=== PATIENT | female | born 1955 | race Caucasian/White ===

== ENCOUNTER → 2017-01-02 | Outpatient (CLI) | payer OTHER | LOC: FIMAGING 13:52 | PROVIDERS: ATTEND Family Medicine | DX: Z13.820 Encounter for screening for osteoporosis (principal); M81.0 Age-related osteoporosis without current pathological fracture; Z78.0 Asymptomatic menopausal state; Z79.899 Other long term (current) drug therapy ==

== ENCOUNTER → 2017-05-10 | Outpatient (CLI) | payer OTHER | LOC: FIMAGING 13:13 | PROVIDERS: ATTEND Family Medicine | DX: Z12.39 Encounter for other screening for malignant neoplasm of breast (principal) | CPT/HCPCS: G0202 ==

== ENCOUNTER → 2018-12-02 | Outpatient (CLI) | payer OTHER | LOC: FIMAGING 08:23 | PROVIDERS: ATTEND Family Medicine | DX: N83.9 Noninflammatory disorder of ovary, fallopian tube and broad ligament, unspecified (principal) ==

== ENCOUNTER → 2018-12-03 | Outpatient (CLI) | payer OTHER ==
[~2018-12-03] MED LIST: IOPAMIDOL (ISOVUE-300) 100 ML BTL ONE
== END ==
LOC: CIMAGING 09:14
PROVIDERS: ATTEND Family Medicine
DX: N83.8 Other noninflammatory disorders of ovary, fallopian tube and broad ligament (principal); K82.9 Disease of gallbladder, unspecified; Z90.89 Acquired absence of other organs; N28.9 Disorder of kidney and ureter, unspecified
CPT/HCPCS: 74177-PO; Q9967

== ENCOUNTER 2018-12-28 09:28 | Emergency (ER) | payer OTHER ==
[2018-12-28 09:34] VITALS: BP 142/82
--- NOTE | 2018-12-28 09:37 | EDPHY ---
H & P Stated Complaint: Rectal bleeding - small amount of blood noticing when wiping. Time Seen by Provider: 12/28/18 09:31 HPI/ROS: CHIEF COMPLAINT: Scant hematochezia HISTORY OF PRESENT ILLNESS: The patient presents to the ED for evaluation of 1 day of very mild scant hematochezia. The patient did noticed a small amount of blood while wiping. The patient denies any abdominal pain. She denies melena. She denies any hematemesis. The patient is scheduled to see Dr. Carmen mckinney with Gastroenterology for a follow-up appointment the 1st week in January. She is not anticoagulated. The patient does report that she has had some constipation this week. She denies additional acute complaints. REVIEW OF SYSTEMS: A comprehensive 10 point review of systems is otherwise negative aside from elements mentioned in the history of present illness. Source: Patient Exam Limitations: No limitations - Personal History Current Tetanus Diphtheria and Acellular Pertussis (TDAP): Unsure - Medical/Surgical History Hx Asthma: No Hx Chronic Respiratory Disease: No Hx Diabetes: No Hx Cardiac Disease: No Hx Renal Disease: No Hx Cirrhosis: No Hx Alcoholism: No Hx HIV/AIDS: No Hx Splenectomy or Spleen Trauma: No Other PMH: Appy Oct 2018. - Social History Smoking Status: Never smoked - Physical Exam Exam: General Appearance: Alert, no distress Eyes: Pupils equal and round no pallor or injection ENT, Mouth: Mucous membranes moist Respiratory: There are no retractions, lungs are clear to auscultation Cardiovascular: Regular rate and rhythm Gastrointestinal: Abdomen is soft and nontender, no masses, bowel sounds normal Rectal: No external hemorrhoids noted, no gross blood noted on digital rectal exam Constitutional: Initial Vital Signs Temperature (C) 36.8 C 12/28/18 09:30 Heart Rate 84 12/28/18 09:30 Respiratory Rate 16 12/28/18 09:30 Blood Pressure 142/82 H 12/28/18 09:30 O2 Sat (%) 96 12/28/18 09:30 O2 Delivery Mode Room Air Allergies/Adverse Reactions: No Known Allergies Allergy (Verified 11/18/12 09:57) Home Medications: Medication Instructions Recorded Miscellaneous Medical Supply [NO 1 ea MISC AD 11/18/12 HOME MEDS] Medical Decision Making ED Course/Re-evaluation: Patient presents the ED with scant rectal hematochezia. She is hemodynamically stable. She gives no history of significant blood loss. She has had some constipation and may have small anal fissure versus internal hemorrhoid. The patient is scheduled to see Gastroenterology next week. At this point time I feel she takes stool softeners. She has been advised to return to the ED for severe pain, heavy bleeding or other concerns. Departure - Departure Disposition: Home, Routine, Self-Care Clinical Impression: Hematochezia Condition: Good Instructions: Rectal Bleeding (ED) Additional Instructions: 1. Return to the ED for any pain, heavy bleeding or other concerns. 2. I do recommend taking a stool softener like Colace each day. 3. Follow up with Gastroenterology as scheduled in January. 4. I do believe this or severe bleeding is a small internal hemorrhoid verses a minor rectal tear from constipation. Referrals: Monica Pedroza MD [Medical Doctor] - As per Instructions
== END 2018-12-28 09:58 | disposition home or self-care (01) ==
DX: K62.5 Hemorrhage of anus and rectum (principal)

== ENCOUNTER → 2019-01-09 | Outpatient (CLI) | payer OTHER | LOC: FIMAGING 09:16 | PROVIDERS: ATTEND Internal Medicine Gastroenterology | DX: D18.03 Hemangioma of intra-abdominal structures (principal); N28.9 Disorder of kidney and ureter, unspecified; K82.4 Cholesterolosis of gallbladder ==

== ENCOUNTER → 2019-01-23 | Outpatient (CLI) | payer OTHER | LOC: FIMAGING 09:58 | DX: N83.202 Unspecified ovarian cyst, left side (principal); D25.9 Leiomyoma of uterus, unspecified ==